=== PATIENT | female | born 1995 | race Caucasian/White ===

== ENCOUNTER 2019-06-19 14:48 | Emergency (ER) | payer OTHER ==
--- NOTE | 2019-06-19 15:36 | ER Document Report ---
ED GI/ - General Chief Complaint: Vag Bleeding, +preg <12wks Stated Complaint: OB PROBLEM Time Seen by Provider: 06/19/19 15:30 Notes: CHIEF COMPLAINT: Vaginal bleeding and pelvic cramping in the setting of HPI: 23-year-old female who is a G2, presenting for vaginal bleeding and pelvic cramping in the setting of . Patient believes she is approximately 6 weeks gestation by dates. States her bleeding today was similar to a menstrual cycle but no clots. Has had mild low back pain. No fever. No dysuria. Has had nausea no vomiting. ROS: See HPI - all other systems were reviewed and are otherwise negative Constitutional: no fever or recent illness Eyes: no drainage, no blurred vision ENT: no runny nose, no sore throat Cardiovascular: no chest pain Resp: no SOB, no cough GI: no vomiting, no diarrhea, positive nausea, positive pelvic pain : no dysuria, no vaginal discharge, positive vaginal bleeding Integumentary: no rash Allergy: no hives Musculoskeletal: no extremity pain or swelling Neurological: no numbness/tingling, no weakness MEDICATIONS: I agree with the patient medications as charted by the RN. ALLERGIES: I agree with the allergies as charted by the RN. PAST MEDICAL HISTORY/PAST SURGICAL HISTORY: Reviewed and agree as charted by RN. SOCIAL HISTORY: Reviewed and agree as charted by RN. FAMILY HISTORY: No significant familial comorbid conditions directly related to patient complaint EXAM: Reviewed vital signs as charted by RN. CONSTITUTIONAL: Alert and oriented and responds appropriately to questions. Well-appearing; well-nourished HEAD: Normocephalic; atraumatic EYES: PERRL; Conjunctivae clear, sclerae non-icteric ENT: normal nose; no rhinorrhea; moist mucous membranes; pharynx without lesions noted NECK: Supple without meningismus; non-tender; no cervical lymphadenopathy, no masses CARD: RRR; no murmurs, no clicks, no rubs, no gallops; symmetric distal pulses RESP: Normal chest excursion without splinting or tachypnea; breath sounds clear and equal bilaterally; no wheezes, no rhonchi, no rales ABD/GI: Normal bowel sounds; non-distended; soft, non-tender, no rebound, no guarding; no palpable organomegaly or masses : Female nurse lead java developer architect present. External genitalia normal. No skin lesions noted. Pelvic Exam: Small amount of bright red blood in the vaginal vault with a small amount of discharge present as well. Cervix appears normal. No CMT. cervix mildly open to fingertip. No lesions or masses. Uterus very mildly enlarged approximating 4 to 5 weeks gestation and non tender. Right/Left adnexa normal size and non tender. BACK: The back appears normal and is non-tender to palpation, there is no CVA tenderness EXT: Normal ROM in all joints; non-tender to palpation; no cyanosis, no effusions, no edema SKIN: Normal color for age and race; warm; dry; good turgor; no acute lesions noted NEURO: Moves all extremities equally; Motor and sensory function intact PSYCH: The patient's mood and manner are appropriate. Grooming and personal hygiene are appropriate. MDM: 23-year-old female with vaginal bleeding and . Will send screening labs, obtain ultrasound to evaluate for miscarriage or ectopic. - Related Data Allergies/Adverse Reactions: No Known Allergies Allergy (Unverified 06/19/19 15:17) Home Medications: PNV Past Medical History - Social History Smoking Status: Never Smoker Chew tobacco use (# tins/day): No Frequency of alcohol use: Rare Drug Abuse: None Family History: Reviewed & Not Pertinent Patient has suicidal ideation: No Patient has homicidal ideation: No Past Surgical History: Reports: Hx Orthopedic Surgery - lt wrist cyst Physical Exam - Vital signs Vitals: Temp Pulse Resp BP Pulse Ox 97.6 F 98 20 123/63 99 06/19/19 14:58 06/19/19 14:58 06/19/19 14:58 06/19/19 14:58 06/19/19 14:58 Course - Vital Signs Vital signs: Temp Pulse Resp BP Pulse Ox 97.6 F 98 20 123/63 99 06/19/19 14:58 06/19/19 14:58 06/19/19 14:58 06/19/19 14:58 06/19/19 14:58 - Laboratory Result Diagrams: 06/19/19 15:30 Laboratory results interpreted by me: 06/19/19 06/19/19 15:30 15:30 Beta HCG, Quant 8957.90 H Urine Glucose (UA) 50 H Urine Ascorbic Acid 40 H Urine HCG, Qual POSITIVE H Discharge - Discharge Clinical Impression: Threatened miscarriage in early , Bacterial vaginitis Condition: Stable Disposition: HOME, SELF-CARE Instructions: Threatened Miscarriage ([facility]) Additional Instructions: 1. follow up with OB for repeat Beta-HCG blood test in 3-5 days 2. follow up with OB for further evaluation and treatment, call for appt. 3. return to the ED for any worsening/onset of abdominal pain, vomiting or vaginal bleeding where you are saturating > 1 pad per hour 4. It was noted today that you have bacterial vaginitis which is a bacterial vaginal infection take the Flagyl to treat this. 5. Your ultrasound today did show an intrauterine measuring approximately 5 weeks and 5 days Prescriptions: Metronidazole [Flagyl 500 mg Tablet] 500 mg PO BID #14 tablet Referrals: JONNA LAROSE MD [ACTIVE STAFF] - Follow up as needed
[2019-06-19 15:41] LABS: ABSOLUTE EOSINOPHILS # (AUTO) 0.1 10^3/uL (0.0-0.6); ABSOLUTE LYMPHOCYTES (AUTO) 1.7 10^3/uL (0.5-4.7); ABSOLUTE MONOCYTES (AUTO) 0.5 10^3/uL (0.1-1.4); ABSOLUTE NEUT (AUTO) 6.7 10^3/uL (1.7-8.2); BASOPHILS % (AUTO) 0.1 % (0-2); EOSINOPHILS % (AUTO) 1.4 % (0-6); HEMOGLOBIN 13.1 g/dL (12.0-15.5); LYMPHOCYTES % (AUTO) 18.8 % (13-45); MEAN CORPUSCULAR HEMOGLOBIN 29.2 pg (27.0-33.4); MEAN CORPUSCULAR HGB CONC 34.4 g/dL (32.0-36.0); MEAN CORPUSCULAR VOLUME 85 fl (80-97); PLATELET COUNT 221 10^3/uL (150-450); RED BLOOD COUNT 4.47 10^6/uL (3.72-5.28); RED CELL DISTRIBUTION WIDTH 12.9 % (11.5-14.0); SEGMENTED NEUTROPHILS % (AUTO) 73.7 % (42-78); TOTAL CELLS COUNTED % (AUTO) 100 %
[2019-06-19 15:49] LABS: APPEARANCE,URINE SLIGHTLY-CLOUDY; BILIRUBIN,URINE NEGATIVE (NEGATIVE); COLOR,URINE YELLOW; GLUCOSE, URINE 50 mg/dL (NEGATIVE); KETONES,URINE NEGATIVE (NEGATIVE); LEUKOCYTE ESTERASE,URINE NEGATIVE (NEGATIVE); NITRITE,URINE NEGATIVE (NEGATIVE); PROTEIN,URINE NEGATIVE (NEGATIVE); URINE SPECIFIC GRAVITY 1.009; UROBILINOGEN,URINE NEGATIVE mg/dL (<2.0)
[2019-06-19 16:03] LABS: BACTERIA (WET MOUNT) 3+ BACTERIA SEEN; EPITHELIALS (WET MOUNT) 3+ EPITHELIALS SEEN; RBCS (WET MOUNT) 3+ RBCS SEEN; T.VAGINALIS (WET MOUNT) NO TRICHOMONAS SEEN; WBCS (WET MOUNT) 2+ WBCS SEEN; YEAST (WET MOUNT) NO YEAST SEEN
[2019-06-19 17:28] LABS: CHLAM PCR NOT DETECTED (NOT DETECT)
--- NOTE | 2019-06-19 18:26 | RADIOLOGY REPORT (SQ) ---
EXAM DESCRIPTION: U/S OB TRANSVAG W/DOPPLER IMAGES COMPLETED DATE/TIME: 06/19/2019 3:16 pm REASON FOR STUDY: vaginal bleeding . . Beta HCG is pending. COMPARISON: None. TECHNIQUE: Transvaginal static and realtime grayscale images acquired of the pelvis. Additional coral cted spectral and color Doppler images recorded. All images stored on PACs. CLINICAL AGE: 6 weeks 2 days based on LMP of 05/06/2019. bHCG: Pending LIMITATIONS: None. FINDINGS: UTERUS: No masses. No anomalies. GESTATIONAL SAC: There is a sac-like structure in the uterine fundus. Possible yolk sac is present. If the saclike structure represents a gestational sac, mean gestational sac diameter is 0.99 cm, cor responding to a gestational age of 5 weeks 5 days. YOLK SAC: Possible yolk sac. POLE: None present. RIGHT ADNEXA: Normal ovary with normal vascular flow. No adnexal free fluid. No adnexal masses. Measures 1.5 x 2.5 x 2 cm LEFT ADNEXA: Normal ovary with normal vascular flow. No adnexal free fluid. No adnexal masses. There is a left corpus luteum follicle measuring 1.9 cm. The left ovary measures 4.5 x 2.3 x 3.5 cm. FREE FLUID: None. OTHER: No other significant finding. IMPRESSION: POSSIBLE EARLY INTRAUTERINE . Gestational sac with possible yolk sac. No pole is identified at this time. CONSIDER F/U BHCG AND/OR ULTRASOUND FOR VERIFICATION AND T O EXCLUDE ECTOPIC . Trimester of : First trimester - 0 to 13 weeks. TECHNICAL DOCUMENTATION: JOB ID: [id number] 2010 [employer]- All Rights Reserved Reading location - IP/workstation name: [email or web address]
[2019-06-19] MEDS ORDERED: METRONIDAZOLE 500 MG TABLET PO ONE (18:40)
[2019-06-19 19:14] VITALS: BP 115/73
== END 2019-06-19 19:05 | disposition home or self-care (01) ==
LOC: ER 14:48
DX: O20.0 Threatened abortion (principal); O23.599 Infection of other part of genital tract in pregnancy, unspecified trimester; B96.89 Other specified bacterial agents as the cause of diseases classified elsewhere; O99.89 Other specified diseases and conditions complicating pregnancy, childbirth and the puerperium; M54.5 Low back pain; Z79.899 Other long term (current) drug therapy; Z3A.00 Weeks of gestation of pregnancy not specified
CPT/HCPCS: 99284; 86900; 86901; 36415; 87210; 86850; 84702; 85025; 81025; 81001; 87491; 87591; 76817; 93976; J2790